=== PATIENT | female | born 1985 | race African-American/Black ===

== ENCOUNTER 2016-12-22 11:43 | Emergency (ER) | payer MEDICAID ==
[~2016-12-22] VITALS: Ht 175.3 cm; Wt 95.0 kg
[2016-12-22 11:44] VITALS: BP 133/91; PULSE 72; RESP 16; TEMP 97.6; O2SAT 99
[2016-12-22 12:44] LABS: BACTERIA, URINE OCC /hpf; BLOOD, URINE NEG (NEG); GLUCOSE,URINE NEG (NEG); KETONE, URINE NEG (NEG); PH, URINE 6.5 (5.0-8.5); SQUAMOUS EPITHELIAL CELL URINE 2 /hpf (0-5); URINE COLOR YELLOW (YELLW/STRAW)
[2016-12-22 12:45] LABS: COMMENT (UR) CULTURE INDICATED; CULTURE IF INDICATED CULTURE INDICATED; NITRITE,URINE POS (NEG)
[2016-12-22] MEDS ORDERED: AZITHROMYCIN PWD FOR SUSP 1 GM PACKET PO ONE (13:30)
[2016-12-22] MEDS ORDERED: LIDOCAINE HCL 1% PF 30 ML VIAL XX ONE (13:30)
[2016-12-22] MEDS ORDERED: metroNIDAZOLE 500 MG TAB PO ONE (13:30)
--- NOTE | 2016-12-22 13:32 | PD ---
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 Patient states she was with individual approximally 2 weeks ago found out a week ago at the person may have had gonorrhea and/or Chlamydia. Patient states over the past 4 days she has been having white vaginal discharge and she is wanting to be checked and treated for STD. Denies any abdominal pain, fevers, dysuria, nausea, vomiting, diarrhea, chest pain, shortness breath, or . Denies doing anything for this prior to coming to the emergency department. Denies anything making it better or worse. PFSH Past Medical History Medical History: Denies Significant Hx ?: Not Social History Alcohol Use: No Tobacco Use: No Substance Use: No Allergies-Medications (Allergen,Severity, Reaction): Coded Allergies: No Known Allergies (Unverified , 12/22/16) Reported Meds & Prescriptions Reported Meds & Active Scripts Active No Active Prescriptions or Reported Medications Review of Systems Except as stated in HPI: all other systems reviewed are Neg Physical Exam Narrative GENERAL: Well-developed, overly nourished, in no acute distress, and non-ill appearing. SKIN: Warm and dry. HEAD: Atraumatic. Normocephalic. EYES: Pupils equal and round. EOMI. No scleral icterus. No injection or drainage. ENT: No nasal bleeding or discharge. Mucous membranes pink and moist. NECK: Trachea midline. Supple. No nuclear rigidity. CARDIOVASCULAR: Regular rate and rhythm. No murmur appreciated. RESPIRATORY: No accessory muscle use. No respiratory distress. Clear to auscultation. Breath sounds equal bilaterally. GASTROINTESTINAL: Abdomen soft, non-tender, nondistended. Hepatic and splenic margins not palpable. Normal bowel sounds 4. No pulsatile mass. GENITOURINARY: Normal external genitalia without lesions or erythema. Vaginal vault without blood, but with milky white discharge drainage. Cervical os was closed without drainage. No cervical motion tenderness. Uterus nontender and nonenlarged. Bilateral adnexa nontender without masses. Exam was performed presence of staffing program manager Lisa at all times. MUSCULOSKELETAL: No obvious deformities. No clubbing. No cyanosis. No edema. Full range of motion. NEUROLOGICAL: Awake and alert. No obvious cranial nerve deficits. Motor grossly within normal limits. Normal speech. PSYCHIATRIC: Appropriate mood and affect; insight and judgment normal. Data Data Last Documented VS Vital Signs Date Time Temp Pulse Resp B/P Pulse Ox O2 Delivery O2 Flow Rate FiO2 12/22/16 11:44 97.6 72 16 133/91 99 Orders Urinalysis - C+S If Indicated (12/22/16 11:57) Ed Urine Pregnancytest Poc (12/22/16 11:57) Urine Culture (12/22/16 12:00) Gc And Chlamydia Pcr (12/22/16 13:27) Wet Prep Profile (12/22/16 13:27) Azithromycin Powd Pack (Zithromax Powd P (12/22/16 13:30) Metronidazole (Flagyl) (12/22/16 13:30) Ceftriaxone Inj (Rocephin Inj) (12/22/16 13:30) Lidocaine Pf 1% Inj (Xylocaine-Mpf 1% In (12/22/16 13:30) Ceftriaxone Inj (Rocephin Inj) (12/22/16 15:15) Labs Laboratory Tests Test 12/22/16 12/22/16 12:00 15:29 Urine Color YELLOW Urine Turbidity HAZY Urine pH 6.5 Urine Specific [place] 1.014 Urine Protein NEG mg/dL Urine Glucose (UA) NEG mg/dL Urine Ketones NEG mg/dL Urine Occult Blood NEG Urine Nitrite POS Urine Bilirubin NEG Urine Urobilinogen LESS THAN 2.0 MG/DL Urine Leukocyte Esterase NEG Urine RBC LESS THAN 1 /hpf Urine WBC 1 /hpf Urine WBC Clumps RARE Urine Squamous Epithelial 2 /hpf Cells Urine Bacteria OCC /hpf Microscopic Urinalysis Comment CULTURE INDICATED Clue Cells (Wet Prep) NONE SEEN Vaginal Trichomonas (Wet Prep) NONE SEEN Vaginal Yeast (Wet Prep) NONE SEEN MDM Medical Decision Making Medical Screen Exam Complete: Yes Emergency Medical Condition: Yes Differential Diagnosis STD exposure, Trichomonas, bacterial vaginosis, UTI, gonorrhea, chlamydia, PID, other Narrative Course Patient in no obvious distress upon re-evaluation. All pertinent laboratory result(s) discussed with patient with exception of the GC chlamydia which is currently pending. Discussed patient with Dr. Canas, who is in agreement with plan of care and disposition. Any questions/concerns in reference to patient diagnosis/condition discussed and clarified prior to patient's discharge. Reinforced sheer importance of close follow up with patient's primary physician or primary care clinic and/or health Department. Instructed patient to return to ED immediately, if symptoms return/worsen. Pt showed understanding of above instructions. Further instructions and recommendations were detailed in discharge paperwork. Pt ambulated without difficulty out of ED at discharge. Diagnosis Primary Impression: STD exposure Additional Impression: UTI (urinary tract infection) Qualified Code: N39.0 - Urinary tract infection without hematuria, site unspecified Referrals: [facility] Dept. Patient Instructions: General Instructions, Sexually Transmitted Diseases (ED) , Urinary Tract Infection in Women (ED) Additional Instructions: Follow-up with your primary care physician and/or health Department for additional STD testing. Notify all sexual partners have them tested and treated. Do not have intercourse until all sexual partners tested and treated. Practice safe sex to prevent further STDs and/or unwanted pregnancies. If you would like a copy of your gonorrhea and chlamydia results bring a photo ID to medical records in 24-48 hours to get a copy. Return to the emergency department if symptoms get worse. Scripts No Active Prescriptions or Reported Meds Disposition: 01 DISCHARGE HOME Condition: Albert Cherry Dec 22, 2016 13:32
[2016-12-22 18:34] LABS: CHLAMYDIA PCR NOT DETECTED (NOT DETECT); NEISSERIA PCR NOT DETECTED (NOT DETECT)
== END 2016-12-22 16:29 | disposition home or self-care (01) ==
LOC: NEPC 11:43
DX: N39.0 Urinary tract infection, site not specified (principal); B95.2 Enterococcus as the cause of diseases classified elsewhere; B95.1 Streptococcus, group B, as the cause of diseases classified elsewhere; Z20.2 Contact with and (suspected) exposure to infections with a predominantly sexual mode of transmission
CPT/HCPCS: 81001; 84703; 86403; 87077; 87086; 87186; 87210; 87491; 87591; 96372; 99283; J0696

== ENCOUNTER 2016-12-30 13:43 | Emergency (ER) | payer MEDICAID ==
[~2016-12-30] VITALS: Ht 175.3 cm; Wt 91.0 kg
[2016-12-30 13:44] VITALS: BP 143/84; PULSE 69; RESP 15; TEMP 98.2; O2SAT 98
[2016-12-30] MEDS ORDERED: DIFL150T PO (14:16)
--- NOTE | 2016-12-30 14:16 | PD ---
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 Patient states she was seen and evaluated 8 days ago, treated for STDs. She states she commonly gets yeast infections following antibiotics. She did develop one and took some [id number] medication. She states sometimes over the counter medications do not work for her and she is given a pill. She reports vaginal itching and a clumpy white discharge similar to yeast infections in the past. At her last visit, gonorrhea, Chlamydia, and her wet prep were all negative. Patient has no other symptoms to report at this time. [facility] Past Medical History Medical History: Denies Significant Hx ?: Not LMP: ABLATION Tubal Ligation: Yes Social History Alcohol Use: No Tobacco Use: No Substance Use: No Allergies-Medications (Allergen,Severity, Reaction): Coded Allergies: No Known Allergies (Unverified , 12/30/16) Reported Meds & Prescriptions Reported Meds & Active Scripts Active Diflucan (Fluconazole) 150 Mg Tab 150 Mg PO ONCE Review of Systems Except as stated in HPI: all other systems reviewed are Neg Physical Exam Narrative GENERAL: Well-nourished female patient, ambulatory no acute distress SKIN: Warm and dry. HEAD: Atraumatic. Normocephalic. EYES: Pupils equal and round. No scleral icterus. No injection or drainage. ENT: No nasal bleeding or discharge. Mucous membranes pink and moist. NECK: Trachea midline. No JVD. CARDIOVASCULAR: Regular rate and rhythm. No murmur appreciated. RESPIRATORY: No accessory muscle use. Clear to auscultation. Breath sounds equal bilaterally. GASTROINTESTINAL: Abdomen soft, non-tender, nondistended. Hepatic and splenic margins not palpable. MUSCULOSKELETAL: No obvious deformities. No clubbing. No cyanosis. No edema. NEUROLOGICAL: Awake and alert. No obvious cranial nerve deficits. Motor grossly within normal limits. Normal speech. Data Data Last Documented VS Vital Signs Date Time Temp Pulse Resp B/P Pulse Ox O2 Delivery O2 Flow Rate FiO2 12/30/16 13:44 98.2 69 15 143/84 98 MDM Medical Decision Making Medical Screen Exam Complete: Yes Emergency Medical Condition: Yes Medical Record Reviewed: Yes Differential Diagnosis Normal examination versus vaginal candidiasis versus vaginal itching versus folliculitis versus STD Narrative Course 31-year-old female presents to emergency department requesting a medication for radiation infection. Patient appears without distress. She reports a history of candidal infections associated with antibiotics. Patient will be given prescription for Diflucan. She is encouraged to follow-up with primary care provider, see gynecology evaluation, and return immediately with any acute worsening symptoms. Diagnosis Primary Impression: Vaginal candidiasis Referrals: [facility] Primary Care Physician Patient Instructions: General Instructions, Vulvovaginal Candidiasis (ED) Additional Instructions: Avoid abrasive washes Follow-up with your primary care provider Seek gynecology evaluation Return immediately with any acute worsening of symptoms Med/Other Pt SpecificInfo: Prescription(s) given Scripts Fluconazole (Diflucan)150 Mg [id number] Mg PO ONCE #1 TAB Ref 0 Prov:Rosemary Lawson 12/30/16 Disposition: 01 DISCHARGE HOME Condition: Stable Rosemary Lawson Dec 30, 2016 14:16
== END 2016-12-30 14:41 | disposition home or self-care (01) ==
LOC: NETRI 13:43
DX: B37.3 Candidiasis of vulva and vagina (principal)
CPT/HCPCS: 99283

== ENCOUNTER 2017-02-12 22:55 | Emergency (ER) | payer MEDICAID ==
[~2017-02-12] VITALS: Ht 177.8 cm; Wt 85.0 kg
[~2017-02-12 22:55] MED LIST: DIFL150T PO
[2017-02-12 22:58] VITALS: BP 140/80; PULSE 78; RESP 16; TEMP 97.9; O2SAT 99
[2017-02-13] MEDS ORDERED: METR-1 PO (00:43)
--- NOTE | 2017-02-13 00:44 | PD ---
HPI Chief Complaint: Abdominal Pain Time Seen by Provider: 00:39 Travel History International Travel<30 days: No Contact w/Intl Traveler<30days: No Traveled to known affect area: No History of Present Illness HPI 31-year-old female reports vaginal discharge for about 1 week. Similar prior episodes have been diagnosed as bacterial vaginosis and responded well to Flagyl. She's had no fever. Occasional nausea is reported. No vomiting. Last menstruation was 4 years ago. She underwent uterine ablation. [facility] Past Medical History Diminished Hearing: No Influenza Vaccination: Yes ?: Unknown LMP: 2012 : 4 Para: 4 Tubal Ligation: Yes (2009) Past Surgical History Gynecologic Surgery: Yes (ABALTION) Social History Alcohol Use: No Tobacco Use: No Substance Use: No Allergies-Medications (Allergen,Severity, Reaction): Coded Allergies: No Known Allergies (Unverified , 02/13/17) Reported Meds & Prescriptions Reported Meds & Active Scripts Active No Active Prescriptions or Reported Medications Review of Systems Except as stated in HPI: all other systems reviewed are Neg General / Constitutional: No: Fever, Chills Genitourinary: Positive: Discharge Physical Exam Narrative GENERAL: Well-nourished well-developed 31-year-old female no acute distress SKIN: Warm and dry. HEAD: Atraumatic. Normocephalic. EYES: Pupils equal and round. No scleral icterus. No injection or drainage. ENT: No nasal bleeding or discharge. Mucous membranes pink and moist. NECK: Trachea midline. No JVD. CARDIOVASCULAR: Regular rate and rhythm. RESPIRATORY: No accessory muscle use. Clear to auscultation. Breath sounds equal bilaterally. GASTROINTESTINAL: Abdomen soft, non-tender, nondistended. Hepatic and splenic margins not palpable. MUSCULOSKELETAL: Extremities without clubbing, cyanosis, or edema. No obvious deformities. NEUROLOGICAL: Awake and alert. No obvious cranial nerve deficits. Motor grossly within normal limits. Five out of 5 muscle strength in the arms and legs. Normal speech. PSYCHIATRIC: Appropriate mood and affect; insight and judgment normal. Data Data Last Documented VS Vital Signs Date Time Temp Pulse Resp B/P Pulse Ox O2 Delivery O2 Flow Rate FiO2 02/12/17 22:58 97.9 78 16 140/80 99 Room Air MDM Medical Decision Making Medical Screen Exam Complete: Yes Emergency Medical Condition: Yes Medical Record Reviewed: Yes Differential Diagnosis IUP, UTI, ectopic , ov torsion, appendicitis, TOA, cervicitis, BV, Trichomoniasis, ov cyst, hernia, mittelschmerz, pain from menstruation Narrative Course Patient presumably has bacterial vaginosis. Flagyl prescribed. She is ready for discharge. Diagnosis Primary Impression: Vaginal discharge Referrals: lEaine Castaneda MD 2 days Additional Instructions: You have a choice when it comes to health care, and we are glad that you chose [facility]. Hopefully, we have met your expectations on today's visit. You are welcome to return to [facility] at any time, as we are committed to meeting the health care needs of our community. Med/Other Pt SpecificInfo: Prescription(s) given Scripts Metronidazole (Flagyl)500 Mg [id number] Mg PO BID 7 Days Ref 0 Prov:Isaac Crawford MD 02/13/17 Disposition: 01 DISCHARGE HOME Condition: Stable Isaac Crawford MD Feb 13, 2017 00:44
[2017-02-13] MEDS ORDERED: metroNIDAZOLE 500 MG TAB PO ONE (00:45)
== END 2017-02-13 01:12 | disposition home or self-care (01) ==
LOC: NEPE 22:55
DX: N89.8 Other specified noninflammatory disorders of vagina (principal)
CPT/HCPCS: 99283

== ENCOUNTER 2017-03-18 12:42 | Emergency (ER) | payer MEDICAID ==
[~2017-03-18] VITALS: Ht 177.8 cm; Wt 90.0 kg
[~2017-03-18 12:42] MED LIST changes: -DIFL150T PO; +METR-1 PO
[2017-03-18 12:45] VITALS: BP 121/80; PULSE 75; RESP 12; TEMP 98.5; O2SAT 98
--- NOTE | 2017-03-18 12:51 | PD ---
Physical Exam Time Seen by Provider: 12:48 Narrative 31 year old female presents to ED for evaluation of Left lower back pain that started after picking up a light speaker two days ago. Has had something similar when she was younger. Rates the pain 10/10 stabbing, constant. Worse with sitting. Denies urinary symptoms. Denies any medical history. Data Data Last Documented VS Vital Signs Date Time Temp Pulse Resp B/P Pulse Ox O2 Delivery O2 Flow Rate FiO2 03/18/17 12:45 98.5 75 12 121/80 98 MDM Medical Record Reviewed: Yes Supervised Visit with ALESHA: No Narrative Course 31 year old female presents to ED for evaluation of left lower back pain. Tylenol is not helping her pain. No focal deficits or weakness. Appears well. VSS Condition: Stable Rosemary Lawson Mar 18, 2017 12:51
[2017-03-18] MEDS ORDERED: BACT800T5 PO (12:59)
[2017-03-18] MEDS ORDERED: IBUP800T23 PO (12:59)
[2017-03-18] MEDS ORDERED: ROBA500T PO (12:59)
[2017-03-18] MEDS ORDERED: CEPH-460 PO (12:59)
--- NOTE | 2017-03-18 13:00 | PD ---
HPI Chief Complaint: Back/ Neck Pain or Injury Time Seen by Provider: 12:58 Travel History International Travel<30 days: No Contact w/Intl Traveler<30days: No Traveled to known affect area: No History of Present Illness HPI 31-year-old female presents to the emergency department with 2 complaints. Her first complaint is low back pain for 3 days after aching of a speaker. That she bent over to put a speaker back down and felt the pain in her low back. Denies encopresis, incontinence, saddle anesthesias. Denies fever, chills, nausea, vomiting. Denies paresthesias, loss of sensation, decreased range of motion, decreased strength to bilateral lower extremity is. Denies IV drug use , cancer. Denies dysuria or change in stool. Has taken Tylenol with some relief of pain. Pain is aggravated with sitting and other certain movements. Her second complaint is an abscess to her right abdominal wall. The last 2 or 3 days. It has drained some purulent drainage. Has history of abscess. No known relieving or aggravating factors. No known allergies. No other modifying factors or associated signs and symptoms. PFSH Past Medical History Diminished Hearing: No : 4 Para: 4 Tubal Ligation: Yes (2009) Past Surgical History Gynecologic Surgery: Yes (ABALTION) Social History Alcohol Use: No Tobacco Use: No Substance Use: No Allergies-Medications (Allergen,Severity, Reaction): Coded Allergies: No Known Allergies (Unverified , 03/18/17) Reported Meds & Prescriptions Reported Meds & Active Scripts Active Bactrim DS (Sulfamethoxazole-Trimethoprim) 800-160 Mg Tab 1 Tab PO BID 10 Days Keflex (Cephalexin) 500 Mg Cap 500 Mg PO Q6H 10 Days Ibuprofen 800 Mg Tab 800 Mg PO Q6HR PRN Robaxin (Methocarbamol) 500 Mg Tab 500 Mg PO QID PRN Flagyl (Metronidazole) 500 Mg Tab 500 Mg PO BID 7 Days Review of Systems Except as stated in HPI: all other systems reviewed are Neg Physical Exam Narrative GENERAL: Well-nourished, well-developed female patient, in no acute distress; afebrile, nontoxic-appearing SKIN: There is an indurated area to the right lateral abdominal wall which measures about 3 cm in diameter. It is fluctuant and there is pointing but no drainage. There is a zone of inflammation around it but no lymphangitis. HEAD: Atraumatic. Normocephalic. EYES: Pupils equal and round. No scleral icterus. No injection or drainage. ENT: Mucosa pink and moist. Airway patent. NECK: Trachea midline. CARDIOVASCULAR: Regular rate. RESPIRATORY: No accessory muscle use. GASTROINTESTINAL: Rounded. MUSCULOSKELETAL: Bilateral lower extremities supple and non-tense with 2+ pedal pulses and sensory intact; with full range of motion and 5/5 strength. 2 + DTRs bilaterally. Active dorsiflexion and extension of bilateral feet. Bilateral straight leg raise is negative for low back pain. Ambulatory with normal gait. Sitting up in bed at 90. Ambulatory in room with normal gait. No obvious deformities. No clubbing. No cyanosis. No edema. BACK: No midline point tenderness on palpation of the lumbar, thoracic, or cervical spine. Tenderness on palpation of bilateral paraspinal lumbar area. No obvious deformities. NEUROLOGICAL: Awake and alert. Oriented 3. No obvious cranial nerve deficits. Motor grossly within normal limits. Normal speech. Moves all extremities. 5/5 strength to all extremities. Sensory intact. PSYCHIATRIC: Appropriate mood and affect; insight and judgment normal. Data Data Last Documented VS Vital Signs Date Time Temp Pulse Resp B/P Pulse Ox O2 Delivery O2 Flow Rate FiO2 03/18/17 12:45 98.5 75 12 121/80 98 MDM Medical Decision Making Medical Screen Exam Complete: Yes Emergency Medical Condition: Yes Medical Record Reviewed: Yes Differential Diagnosis Low back strain, acute low back pain, abscess Narrative Course 31-year-old female physical examination consistent with low back strain and abscess to the right abdominal wall. Patient is afebrile and nontoxic- appearing. She denies fever, chills, nausea, vomiting. Denies IV drug use or cancer. Denies encopresis, incontinence, saddle anesthesias. The abscess is fluctuant and does have an area of pointing. The patient says it has been draining some purulent drainage. She refuses for the abscess to be incised and drained. I discussed the need for incision and drainage and the patient continued to refuse. She said she will return if it worsens. Ibuprofen and Robaxin administered in the ER. Ibuprofen, Robaxin, Keflex, Bactrim prescribed for home. Patient verbalizes understanding and agreement with treatment plan. Patient is medically cleared and stable for discharge. Discussed reasons to return to the emergency department. Instructed patient to follow up with primary care provider. Patient agrees with treatment plan. The patients vital signs are stable and the patient is stable for outpatient follow-up and treatment. Patient discharged home, stable and in no acute distress. Diagnosis Primary Impression: Low back strain Qualified Code: S39.012A - Low back strain, initial encounter Additional Impression: Abscess Referrals: Primary Care Physician Patient Instructions: Abscess (ED), General Instructions, Low Back Strain (ED) Departure Forms: Tests/Procedures, Work Release Enter return to work date: Mar 19, 2017 Additional Instructions: Complete full course of antibiotics Warm compresses to the affected area Keep area clean and dry Ibuprofen or Tylenol as directed and as needed for pain and inflammation Follow-up with primary care provider Return to emergency department immediately with worsening of symptoms Tylenol or ibuprofen as directed and as needed for pain Robaxin as prescribed and as needed for muscle spasms Heating pad and/or ice to affected area to reduce pain Avoid aggravating activities; increase activity as tolerated Follow-up with primary care provider Return to emergency department immediately with worsening of symptoms Med/Other Pt SpecificInfo: Prescription(s) given Scripts Sulfamethoxazole-Trimethoprim (Bactrim DS)800-160 Mg Tab1 Tab PO BID 10 Days Ref 0 Prov:Norma Jin 03/18/17 Cephalexin (Keflex)500 Mg [id number] Mg PO Q6H 10 Days Ref 0 Prov:Norma JinP 03/18/17 Ibuprofen 800 Mg [id number] Mg PO Q6HR PRN (PAIN) #30 TAB Ref 0 Prov:Norma Jin 03/18/17 Methocarbamol (Robaxin)500 Mg [id number] Mg PO QID PRN (MUSCLE SPASM) #30 TAB Ref 0 Prov:Norma Jin 03/18/17 Disposition: 01 DISCHARGE HOME Condition: Stable Norma Jin Mar 18, 2017 13:00
== END 2017-03-18 13:14 | disposition home or self-care (01) ==
LOC: NEPK 12:42
DX: S39.012A Strain of muscle, fascia and tendon of lower back, initial encounter (principal); L02.211 Cutaneous abscess of abdominal wall; X50.0XXA Overexertion from strenuous movement or load, initial encounter; Y93.89 Activity, other specified
CPT/HCPCS: 99282

== ENCOUNTER 2017-04-23 09:08 | Emergency (ER) | payer MEDICAID ==
[~2017-04-23] VITALS: Ht 175.3 cm; Wt 90.5 kg
[~2017-04-23 09:08] MED LIST changes: +BACT800T5 PO; +CEPH-460 PO; +IBUP800T23 PO; +ROBA500T PO
[2017-04-23 09:10] VITALS: BP 132/88; PULSE 75; RESP 16; TEMP 97.7; O2SAT 98
--- NOTE | 2017-04-23 09:40 | PD ---
HPI . wants to be treated for her body's bacteria infection Chief Complaint: Skin Problem Time Seen by Provider: 09:40 Travel History International Travel<30 days: No Contact w/Intl Traveler<30days: No Traveled to known affect area: No History of Present Illness HPI 31-year-old female here telling me that she had an abscess on the right side of her abdomen. She says that she would like to be treated prophylactically for bacterial infection running through her blood. She denies any fever, chills, new infections elsewhere on her body. She has not yet established with her primary care provider. PFSH Past Medical History Diminished Hearing: No ?: Not : 4 Para: 4 Tubal Ligation: Yes (2009) Past Surgical History Gynecologic Surgery: Yes (ABALTION) Hysterectomy: Yes Social History Alcohol Use: No Tobacco Use: No Substance Use: No Allergies-Medications (Allergen,Severity, Reaction): Coded Allergies: No Known Allergies (Unverified , 03/18/17) Reported Meds & Prescriptions Reported Meds & Active Scripts Active Bactrim DS (Sulfamethoxazole-Trimethoprim) 800-160 Mg Tab 1 Tab PO BID 10 Days Keflex (Cephalexin) 500 Mg Cap 500 Mg PO Q6H 10 Days Ibuprofen 800 Mg Tab 800 Mg PO Q6HR PRN Robaxin (Methocarbamol) 500 Mg Tab 500 Mg PO QID PRN Flagyl (Metronidazole) 500 Mg Tab 500 Mg PO BID 7 Days Review of Systems General / Constitutional: No: Fever Eyes: No: Visual changes HENT: No: Headaches Cardiovascular: No: Chest Pain or Discomfort Respiratory: No: Shortness of Breath Gastrointestinal: No: Abdominal Pain Genitourinary: No: Dysuria Musculoskeletal: No: Pain Skin: No Rash Neurologic: No: Weakness Psychiatric: No: Depression Endocrine: No: Polydipsia Hematologic/Lymphatic: No: Easy Bruising Physical Exam Narrative GENERAL: AAO x 3, no acute distress, Well-nourished, well-developed patient. SKIN: Warm and dry. No visible rashes or bruising. small healing papule on right mid lateral abdomen HEAD: Normocephalic and atraumatic. EYES: No scleral icterus. No injection or drainage. ENT: No nasal drainage noted. Mucous membranes pink. Airway patent. NECK: Supple, trachea midline. No JVD. CARDIOVASCULAR: Regular rate and rhythm without murmurs, gallops, or rubs. RESPIRATORY: Breath sounds equal bilaterally. No accessory muscle use. No rhonchi or rales. GASTROINTESTINAL: Abdomen soft, non-tender, nondistended. EXTREMITIES: No cyanosis or edema. BACK: Nontender without obvious deformity. No CVA tenderness. PSYCH: AAO x 3, normal affect. Data Data Last Documented VS Vital Signs Date Time Temp Pulse Resp B/P Pulse Ox O2 Delivery O2 Flow Rate FiO2 04/23/17 09:10 97.7 75 16 132/88 98 Room Air MDM Medical Decision Making Medical Screen Exam Complete: Yes Emergency Medical Condition: No Medical Record Reviewed: Yes Differential Diagnosis Healing abscess, papule, less likely sepsis Narrative Course I have seen and examined this 31-year-old female. She does not have any evidence of widespread infection or localized infection. I've explained this to her. I recommend follow-up with her primary care provider. A medical screening exam was performed: At the time of evaluation the presenting medical condition was determined not to be of an emergent nature. The patient was given the option of receiving additional care, but declined. Patient was given options for additional community resources from which to obtain care. The Patient Has Been advised to seek medical attention for their presenting complaint. The patient has been advised to return to the ER at any time if an emergent condition develops. Diagnosis Primary Impression: Encounter for medical screening examination Condition: Stable Sneha Jaffe April 23, 2017 09:40
== END 2017-04-23 10:18 | disposition left against medical advice (07) ==
LOC: NEPK 09:08
DX: L98.8 Other specified disorders of the skin and subcutaneous tissue (principal)
CPT/HCPCS: 99281

== ENCOUNTER 2017-08-16 13:37 | Emergency (ER) | payer MEDICAID ==
[~2017-08-16] VITALS: Ht 175.3 cm; Wt 100.0 kg
[2017-08-16 13:49] VITALS: BP 127/74; PULSE 84; RESP 15; TEMP 97.9; O2SAT 99
[2017-08-16 14:20] LABS: BACTERIA, URINE RARE /hpf; BLOOD, URINE TRACE (NEG); COMMENT (UR) CULTURE INDICATED; CULTURE IF INDICATED CULTURE INDICATED; GLUCOSE,URINE NEG (NEG); KETONE, URINE NEG (NEG); NITRITE,URINE POS (NEG); SQUAMOUS EPITHELIAL CELL URINE 2 /hpf (0-5); URINE COLOR YELLOW (YELLW/STRAW)
--- NOTE | 2017-08-16 14:46 | PD ---
HPI . UTI Chief Complaint: Complaint Time Seen by Provider: 14:43 Travel History International Travel<30 days: No Contact w/Intl Traveler<30days: No Traveled to known affect area: No History of Present Illness HPI 31-year-old female with history of UTIs in the past here with complaints of another UTI. Patient tells me that she's had urinary tract infections in the past and she is almost certain that she has another one. She's had these symptoms for about a week, but has not been able to get into her primary care provider. She denies any fever, chills or abdominal pain. She has no other complaints at this time. PFSH Past Medical History Diminished Hearing: No ?: Not : 4 Para: 4 Tubal Ligation: Yes (2009) Past Surgical History Gynecologic Surgery: Yes (ABALTION) Hysterectomy: Yes Social History Alcohol Use: No Tobacco Use: No Substance Use: No Allergies-Medications (Allergen,Severity, Reaction): Coded Allergies: No Known Allergies (Unverified , 03/18/17) Reported Meds & Prescriptions Reported Meds & Active Scripts Active Pyridium (Phenazopyridine HCl) 100 Mg Tab 100 Mg PO Q8H PRN 3 Days Macrobid (Nitrofurantoin Monohydrate Macrocrystals) 100 Mg Capsule 100 Mg PO BID 7 Days Bactrim DS (Sulfamethoxazole-Trimethoprim) 800-160 Mg Tab 1 Tab PO BID 10 Days Keflex (Cephalexin) 500 Mg Cap 500 Mg PO Q6H 10 Days Ibuprofen 800 Mg Tab 800 Mg PO Q6HR PRN Robaxin (Methocarbamol) 500 Mg Tab 500 Mg PO QID PRN Flagyl (Metronidazole) 500 Mg Tab 500 Mg PO BID 7 Days Review of Systems General / Constitutional: No: Fever Eyes: No: Visual changes HENT: No: Headaches Cardiovascular: No: Chest Pain or Discomfort Respiratory: No: Shortness of Breath Gastrointestinal: No: Abdominal Pain Genitourinary: Positive: Urgency, Frequency, No: Dysuria Musculoskeletal: No: Pain Skin: No Rash Neurologic: No: Weakness Psychiatric: No: Depression Endocrine: No: Polydipsia Hematologic/Lymphatic: No: Easy Bruising Physical Exam Narrative GENERAL: AAO x 3, no acute distress, Well-nourished, well-developed patient. SKIN: Warm and dry. No visible rashes or bruising. HEAD: Normocephalic and atraumatic. EYES: No scleral icterus. No injection or drainage. ENT: No nasal drainage noted. Mucous membranes pink. Airway patent. NECK: Supple, trachea midline. No JVD. CARDIOVASCULAR: Regular rate and rhythm without murmurs, gallops, or rubs. RESPIRATORY: Breath sounds equal bilaterally. No accessory muscle use. No rhonchi or rales. GASTROINTESTINAL: Abdomen soft, non-tender, nondistended. no suprapubic tenderness, no rebound or guarding EXTREMITIES: No cyanosis or edema. BACK: No obvious deformity. No CVA tenderness. NEURO: CN II-12 intact, PSYCH: AAO x 3, normal affect. Data Data Last Documented VS Vital Signs Date Time Temp Pulse Resp B/P (MAP) Pulse Ox O2 Delivery O2 Flow Rate FiO2 08/16/17 13:49 97.9 84 15 127/74 (91) 99 Orders Orders Urinalysis - C+S If Indicated (08/16/17 13:56) Ed Urine Pregnancytest Poc (08/16/17 13:56) Urine Culture (08/16/17 14:03) Labs Laboratory Tests Test 08/16/17 14:03 Urine Color YELLOW Urine Turbidity HAZY Urine pH 7.0 Urine Specific [place] 1.012 Urine Protein NEG mg/dL Urine Glucose (UA) NEG mg/dL Urine Ketones NEG mg/dL Urine Occult Blood TRACE Urine Nitrite POS Urine Bilirubin NEG Urine Urobilinogen LESS THAN 2.0 MG/DL Urine Leukocyte Esterase LARGE Urine RBC 4 /hpf Urine WBC 44 /hpf Urine Squamous Epithelial Cells 2 /hpf Urine Bacteria RARE /hpf Urine Yeast (Budding) FEW Microscopic Urinalysis Comment CULTURE INDICATED MDM Medical Decision Making Medical Screen Exam Complete: Yes Emergency Medical Condition: Yes Medical Record Reviewed: Yes Differential Diagnosis UTI, pyelonephritis, less likely nephrolithiasis Narrative Course 31 yr old female here with c/o UTI symptoms. Her UA is positive. She is not . She is requesting something for pain from her UTI symptoms and I will provide pyridium. I recommend she follow with her primary care provider. Diagnosis Primary Impression: UTI (urinary tract infection) Qualified Codes: N30.01 - Acute cystitis with hematuria Patient Instructions: General Instructions Additional Instructions: Please return to emergency department if your symptoms return or worsen. Follow up with your primary care provider. Take medications as prescribed. Med/Other Pt SpecificInfo: Prescription(s) given Scripts Phenazopyridine (Pyridium) 100 Mg Tab 100 MG PO Q8H Y for DYSURIA for 3 Days, #9 TAB 0 Refills Prov: Cleveland Hendrickson MD 08/16/17 Nitrofurantoin Monohydrate Macrocrystals (Macrobid) 100 Mg Capsule 100 MG PO BID for Infection for 7 Days, #14 CAP 0 Refills Prov: Cleveland Hendrickson MD 08/16/17 Disposition: 01 DISCHARGE HOME Condition: Stable Sneha Jaffe Aug 16, 2017 14:46
[2017-08-16] MEDS ORDERED: MACR100C2 PO (14:47)
[2017-08-16] MEDS ORDERED: PHEN0.4T PO (14:47)
== END 2017-08-16 15:08 | disposition home or self-care (01) ==
LOC: NEPD 13:37
DX: N39.0 Urinary tract infection, site not specified (principal); B96.20 Unspecified Escherichia coli [E. coli] as the cause of diseases classified elsewhere; Z79.1 Long term (current) use of non-steroidal anti-inflammatories (NSAID); Z79.899 Other long term (current) drug therapy
CPT/HCPCS: 81001; 84703; 87077; 87086; 87186; 99284

== ENCOUNTER 2017-10-26 14:11 | Emergency (ER) | payer MEDICAID ==
[~2017-10-26] VITALS: Ht 175.3 cm; Wt 100.0 kg
[~2017-10-26 14:11] MED LIST changes: +IBUP1TAB7 PO; -IBUP800T23 PO; +MACR100C2 PO; +PHEN0.4T PO
[2017-10-26 14:12] VITALS: BP 127/90; PULSE 65; RESP 16; TEMP 98.5; O2SAT 100
[2017-10-26 15:10] LABS: BLOOD, URINE NEG (NEG); GLUCOSE,URINE NEG (NEG); KETONE, URINE NEG (NEG); NITRITE,URINE NEG (NEG); SQUAMOUS EPITHELIAL CELL URINE 2 /hpf (0-5); URINE COLOR YELLOW (YELLW/STRAW)
[2017-10-26 15:11] LABS: COMMENT (UR) CULT NOT INDICATED; CULTURE IF INDICATED CULT NOT INDICATED
--- NOTE | 2017-10-26 16:17 | PD ---
HPI . Dysuria Chief Complaint: Complaint Time Seen by Provider: 16:00 Travel History International Travel<30 days: No Contact w/Intl Traveler<30days: No Traveled to known affect area: No History of Present Illness HPI 32-year-old female presents to emergency room for evaluation of dysuria x 2 weeks. Patient denies any abdominal pain, hematuria, vomiting, nausea, diarrhea , fever, chills, malaise, lightheadedness. Patient states she was just evaluated for STDs with her flue cleaner last Friday. Patient states she did not have any STDs. Patient denies any major medical history. Patient is not taking any daily medication. PFSH Past Medical History Diminished Hearing: No Genitourinary: Yes (UTI) Influenza Vaccination: No ?: Not LMP: 10/01/17 : 4 Para: 4 Tubal Ligation: Yes (2009) Past Surgical History Gynecologic Surgery: Yes (ABALTION) Hysterectomy: Yes Social History Alcohol Use: Yes (SOCIALLY) Tobacco Use: No Substance Use: No Allergies-Medications (Allergen,Severity, Reaction): Coded Allergies: No Known Allergies (Unverified Adverse Reaction, Unknown, 10/26/17) Reported Meds & Prescriptions Reported Meds & Active Scripts Active No Active Prescriptions or Reported Medications Review of Systems Except as stated in HPI: all other systems reviewed are Neg Genitourinary: Positive: Dysuria Physical Exam Narrative GENERAL: Well-nourished, well-developed 32-year-old female patient in no acute distress. Nontoxic appearing. SKIN: Focused skin assessment warm/dry. HEAD: Normocephalic. Atraumatic. EYES: No scleral icterus. No injection or drainage. NECK: Supple, trachea midline. No JVD or lymphadenopathy. CARDIOVASCULAR: Regular rate and rhythm without murmurs, gallops, or rubs. RESPIRATORY: Breath sounds equal bilaterally. No accessory muscle use. GASTROINTESTINAL: Abdomen soft, non-tender, nondistended. MUSCULOSKELETAL: No cyanosis, or edema. BACK: Nontender without obvious deformity. No CVA tenderness. Data Data Last Documented VS Vital Signs Date Time Temp Pulse Resp B/P (MAP) Pulse Ox O2 Delivery O2 Flow Rate FiO2 10/26/17 14:12 98.5 65 16 127/90 (102) 100 Orders Orders Urinalysis - C+S If Indicated (10/26/17 14:20) Labs Laboratory Tests Test 10/26/17 14:35 Urine Color YELLOW Urine Turbidity HAZY Urine pH 6.0 Urine Specific [place] 1.014 Urine Protein NEG mg/dL Urine Glucose (UA) NEG mg/dL Urine Ketones NEG mg/dL Urine Occult Blood NEG Urine Nitrite NEG Urine Bilirubin NEG Urine Urobilinogen LESS THAN 2.0 MG/DL Urine Leukocyte Esterase SMALL Urine RBC LESS THAN 1 /hpf Urine WBC 8 /hpf Urine Squamous Epithelial Cells 2 /hpf Microscopic Urinalysis Comment CULT NOT INDICATED MDM Medical Decision Making Medical Screen Exam Complete: Yes Emergency Medical Condition: Yes Differential Diagnosis Differential diagnoses include but not limited to UTI, STI, pyelonephritis, dysuria Narrative Course 32-year-old female presents emergency department for evaluation of dysuria 2 weeks. Patient denies any fever, chills, malaise, hematuria. UA ordered and pending. UA is consistent with UTI with elevated esterase and WBCs. Patient will be given a prescription for Macrobid and discharged home with instructions for supportive care to follow up with her primary care return the emergency Department with any worsening condition. Diagnosis Primary Impression: UTI (urinary tract infection) Qualified Codes: N39.0 - Urinary tract infection, site not specified Referrals: Primary Care Physician Patient Instructions: General Instructions, Urinary Tract Infection in Women ( [place]) Additional Instructions: Please return to emergency department if your symptoms return or worsen. Follow up with your primary care provider. Take medications as prescribed. Supportive care, stay hydrated, get enough rest, diet as tolerated. May alternate ibuprofen and Tylenol as a for pain or fevers. Med/Other Pt SpecificInfo: Prescription(s) given Scripts Nitrofurantoin Monohydrate Macrocrystals (Nitrofurantoin Monohydrate Macrocrystals) 100 Mg Cap 100 MG PO BID for Infection for 5 Days, #10 CAP 0 Refills Prov: KatjaAysha 10/26/17 Disposition: 01 DISCHARGE HOME Condition: Stable Aysha Hightower Oct 26, 2017 16:17
[2017-10-26] MEDS ORDERED: NITR100C4 PO (16:22)
== END 2017-10-26 16:37 | disposition home or self-care (01) ==
LOC: NEPD 14:11
DX: N39.0 Urinary tract infection, site not specified (principal)
CPT/HCPCS: 81001; 99283